=== PATIENT | female | born 1945 | race Caucasian/White ===

== ENCOUNTER 2018-10-19 15:58 | Observation (INO) ==
[2018-10-19] MEDS ORDERED: ZOFRAN IV PRN (16:16)
[2018-10-19] MEDS ORDERED: NITROGLYCERIN SL PRN (16:16)
[2018-10-19] MEDS ORDERED: SALINE LOCK IV FLUID XX ONE (16:16)
[2018-10-19] MEDS ORDERED: TYLENOL PO PRN (16:16)
--- NOTE | 2018-10-19 16:47 | Diag Imaging Result Doc PS360 ---
EXAM: CHEST-2 VIEWS 10/19/2018 HISTORY: Chest Pain TECHNIQUE: PA and lateral chest COMMENT: There is a hiatal hernia. The heart size and primary vascularity are within normal limits. The lungs are clear and unchanged since 06/18/2013. IMPRESSION: Hiatal hernia. Electronically signed by Bib Murray 10/19/2018 4:45 PM
--- NOTE | 2018-10-19 17:07 | EKG Report ---
Test Performed on : 10/19/2018 4:56:51 PM Test Reason : palpitations/cp Blood Pressure : / mmHG Vent. Rate : 079 BPM Atrial Rate : 079 BPM P-R Int : 158 ms QRS Dur : 090 ms QT Int : 392 ms P-R-T Axes : 026 -26 036 degrees QTc Int : 449 ms Sinus rhythm. with occasional premature ventricular complexes. Otherwise normal ECG No previous ECGs available Confirmed by Luis Fernando HUYNH, Marcelino Cazares ([id number]) on 10/21/2018 9:42:40 AM
[2018-10-19] MEDS ORDERED: ASPIRIN PO STA (17:08)
[2018-10-19 17:28] LABS: BASO# 0.02 X1000 (0.0-0.2); BASO% 0.2 % (0.0-0.8); EOS# 0.23 X1000 (0.0-0.7); EOS% 2.5 % (0.0-10.0); HEMATOCRIT 41.7 % (37.0-47.0); LYMPH# 3.66 X1000 (1.2-3.4); LYMPH% 39.7 % (20.5-51.1); MCH 31.7 PG (27-31); MCHC 33.6 g/dL (33-37); MCV 94.6 FL (81-99); MONO# 0.63 X1000 (0.11-0.59); MONO% 6.8 % (1.7-9.3); MPV 10.2 FL (7.4-10.4); NEUT# 4.67 X1000 (1.4-6.5); NEUT% 50.8 % (42.2-75.2); PLT 305 X1000 (130-400); RBC 4.41 XMIL (4.2-5.4); RDW 13.4 % (11.5-14.5); WBC 9.21 X1000 (4.8-10.8)
--- NOTE | 2018-10-19 17:36 | HISTORY AND PHYSICAL ---
CHIEF COMPLAINT: Heart skipping and chest pains. HISTORY OF PRESENT ILLNESS: The patient is a 72-year-old white female followed in my medical practice. She had come into the office initially on 10/15/2018 complaining of irregular heart rate. At that time, she was on some prednisone due to asthmatic bronchitis and she was on Levaquin, Bromfed DM, Zyrtec, and prednisone taper. She was on exam, having about every 5th beat that was skipping and noted on EKG to have PACs. We did labs to include BMP, magnesium, phosphorus, cardiac enzymes, troponin levels, and those studies were negative with the exception of phosphorus was mildly elevated at 4.6. Thyroid function test also were normal with free T4 1.21, TSH 4.01. The patient also had rendered a history of some chest pressure in addition to the fluttering sensation in her chest. Symptoms seemed to improve markedly until yesterday when she drank a large glass of tea at which time she seemed to note some palpitations came back, felt like her heart was racing and she noted symptoms worsen when lying down. Later on today around 12:30 p.m. she developed recurrent symptoms quite significant and had some chest pressure, pain, left axillary area that was fairly prominent 3 to 4/10, nonexertional. She notes her symptoms got worse when she laid back and felt the heart start racing significantly again. She desires admission to figure out what is going on. She was in the process of getting a Holter monitor set up through the outpatient route. MEDICATIONS: Prior to admission have been the Levaquin. She takes Zyrtec longstanding 10 mg daily, Fosamax 70 mg p.o. 1 time per week, Norvasc 5 mg p.o. daily, Zantac 300 mg p.o. daily, Prevacid 30 mg p.o. daily, multivitamin 1 p.o. daily. ALLERGIES: Codeine and Belladonna. PAST MEDICAL HISTORY: 1. Chronic hematuria with history of negative workup in the past. 2. Chronic constipation. 3. Diverticulosis. 4. Hypertension. 5. IBS. 6. History of remotely positive PPD. 7. Hiatal hernia. 8. Hypercholesterolemia diagnosed 2014, diet-controlled. 9. Dry macular degeneration, left greater than right. PAST SURGICAL HISTORY: 1. ADEOLA, RSO. 2. Laparoscopic cholecystectomy June 2001. IMMUNIZATIONS: Pneumovax 23, Tdap given August 2016, Prevnar 13 given December 2015. Zostavax given August 2016. FAMILY HISTORY: Notable for mother with hypertension. Father with OR at age 62. Grandmother with emphysema. She was a nonsmoker. TB and grandmother. No stroke in the family. Grandmother with diabetes mellitus. No cancer in the family. SOCIAL HISTORY: The patient lives in [place]. She is . She has 3 sons. 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 She has never been a smoker. She has had a lot of secondhand exposure, however. No alcohol use. REVIEW OF SYSTEMS: Negative except as above. PHYSICAL EXAMINATION: VITAL SIGNS: Weight 168, height 5 feet 6-1/2 inches tall, blood pressure 132/68, pulse 85, BMI 27. GENERAL: Well-developed, well-nourished white female. She says the pain has currently subsided in the left axillary area. PERRL. EOMI. Sclerae clear. Oropharynx, no redness. Tongue in the midline. NECK: No LA, TMG, JVD, bruits. CARDIOVASCULAR: RRR without MGR. No chest wall tenderness. No rash. LUNGS: CTA. ABDOMEN: Soft, NT, ND. No mass. No HSM. EXTREMITIES: No calf tenderness, cords or edema. NEUROLOGIC: Cranial nerves 2-12 are intact. No focal deficits. GENITOURINARY/RECTAL: Exam deferred. ASSESSMENT: 1. Atypical chest pain. 2. Palpitations with history of recent PACs after prednisone administration, now improved somewhat after 4 days off the prednisone. 3. Family history of coronary artery disease in her father. 4. Diet-controlled hypercholesterolemia. 5. Hypertension. 6. Diverticulosis. 7. Irritable bowel syndrome/chronic constipation. 8. Chronic hematuria with previously negative workup. 9. Remotely positive PPD. 10. Macular degeneration dry variety. 11. Hiatal hernia. PLAN: Will admit the patient. Obtain serial cardiac enzymes and troponin levels. Check CBC, CMP, chest x-ray, EKG, and we will ask Cardiology to see the patient as she may require additional cardiac studies. We will monitor her specifically on telemetry during the hospitalization as well. cc: Ronald Jc MD
[2018-10-19 17:46] LABS: ALB/GLOB RATIO 1.6; ALBUMIN 4.4 g/dL (3.5-5.0); CREATININE 1.1 mg/dL (0.5-0.9); TOTAL BILIRUBIN 0.62 mg/dL (0.20-1.00); TOTAL PROTEIN 7.1 g/dL (6.3-8.3)
--- NOTE | 2018-10-19 19:13 | CARDIOLOGY CONSULTATION ---
DATE: 10/19/2018 CONSULTATION REQUESTED BY: Ronald Jc MD INDICATION: Chest pain, palpitations. HISTORY: Ms. Jimenez is a pleasant 72-year-old female who presented to the attention of Dr. Jc about 10 days ago. The patient apparently had been to a graduation ceremony at [facility] and a few days later she started having respiratory congestion, cough, some wheezing. She went to see Dr. Jc on October 09. At that time, she was assessed and indeed she shows some wheezing and she got prescription for, I believe, prednisone and probably antibiotics. A few days later on October 14 after eating her lunch around noon time she suddenly experienced intense pressure in the middle of the chest that was followed and associated with palpitations. The rest of the day, she continued to have pressure in the chest. She was uncomfortable. Next day on October 15, went to see Dr. Jc who prescribed some medication, evaluated her and suggested perhaps doing a Holter monitor on her. Then yesterday, she felt again pressure in the chest and palpitations and today it really got worse and she was advised to come for admission to the hospital. The rest of the week she has felt palpitations and some persistent pressure like discomfort in the chest. Today she ate half a Musa sandwich and did not feel well. She went to lie down in bed and then she started having a lot of palpitations, pressure in the back of the neck, shoulder, and a dull more intense discomfort. At that time, she decided to come in to the hospital for further evaluation. They have done an EKG at 4:56 p.m. that shows sinus rhythm with PVCs. Her monitor shows frequent PVCs, bigeminy and trigeminy. PAST MEDICAL HISTORY: Positive for previous bout of palpitations and chest discomfort that led to an evaluation by Dr. Roseline Lee about 8 years ago. Back then nothing panned out. A CT of the heart showed no evidence of coronary calcification. She has been diagnosed with hiatal hernia. PAST SURGICAL HISTORY: Positive for cholecystectomy in 1998, hysterectomy in 1978. 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 She has also worked at the [employer] in the past. She currently lives with her . She has 3 grownup children. She has a dog and a cat. [place] She has no limitation to perform physical activities as far as she can tell. She has never been a smoker nor drinker. FAMILY HISTORY: Negative for heart disease. HOME MEDICATIONS: At this time, she is not taking any medication. She just finished her round of prednisone. REVIEW OF SYSTEMS: Really noncontributory other than the report of hiatal hernia and acid reflux. PHYSICAL EXAMINATION: Vital signs: Blood pressure is 137/76, pulse 101, temperature 97.4 degrees, respirations 71 General: She is awake, alert, oriented, in no distress. HEENT: Unremarkable. Chest: Clear to auscultation and percussion. Heart: Sounds are slightly irregular. She does have frequent extrasystoles. Abdomen: Nontender. Soft. Extremities: Show good pulses. No edema. Neurological: Nonfocal. Moves 4 extremities. LABORATORY DATA: Blood work is pending. EKG, as I said, done at 4:56 p.m. shows sinus rhythm with PVCs. IMPRESSION: 1. Patient presenting with atypical chest pain that temporally associates with a course of prednisone a few days prior to the onset of the discomfort. 2. History of hiatal hernia. Likely significant esophagitis/gastritis. 3. Abnormal EKG with premature ventricular contractions, ventricular arrhythmia. RECOMMENDATION: At this time, the patient probably has a noncardiac chest pain, however, given her age, it would be appropriate to pursue ischemia workup to make sure we are not missing anything potentially serious. We will arrange for a walking Lexiscan myocardial perfusion study. We will put her on low-dose Cardizem. We may consider also low-dose beta kandi. However, she has recently been treated for wheezing, suggesting that she may have reactive airway disease. We will put her on Carafate to minimize the abdominal or epigastric discomfort and further advice will be forthcoming. Thank you for the opportunity to participate in her evaluation. cc: MD Ronald De La Torre MD MTDD
[2018-10-19 21:16] LABS: URINE SOURCE CLEAN CATCH
[2018-10-19 21:23] LABS: BILIRUBIN URINE NEGATIVE (NEGATIVE); BLOOD URINE TRACE (NEGATIVE); COLOR STRAW; GLUCOSE URINE NEGATIVE (NEGATIVE); KETONE URINE NEGATIVE (NEGATIVE); LEUKOCYTES URINE LARGE (NEGATIVE); NITRITE URINE NEGATIVE (NEGATIVE); PROTEIN URINE NEGATIVE (NEGATIVE); SP GRAVITY URINE 1.003; TURBIDITY URINE CLEAR (CLEAR); UR EPITHELIAL CELLS <10 /HPF (<10); URINE BACTERIA NEGATIVE /HPF; URINE RBC <10 /HPF (<10); URINE WBC TNTC /HPF (<10); UROBILINOGEN URINE NORMAL (NORMAL)
[2018-10-19] MEDS: CARAFATE LIQUID PO SCH (22:12)
[2018-10-19] MEDS: CARDIZEM PO SCH (22:12)
[2018-10-20] MEDS: CARAFATE LIQUID PO SCH ×3 (02:33→14:20)
[2018-10-20] MEDS: CARDIZEM PO SCH ×2 (06:17→14:19)
[2018-10-20] MEDS ORDERED: PRILOSEC PO SCH (07:00)
--- NOTE | 2018-10-20 08:54 | PROGRESS NOTE ---
DATE: 10/20/2018 SUBJECTIVE: The patient says she feels better since taking the Cardizem last evening. She has had no chest pains. No palpitations. OBJECTIVE: Afebrile. Pulse 70, respirations 16, blood pressure 136/57. O2 saturation room air 95 to 96%.CV: RRR without murmur. No ectopy. Lungs: Clear. No wheezes. Abdomen: Nontender. Extremities: No calf tenderness, cords or edema. Neurologic: Nonfocal. Cranial nerves intact. LABORATORY: Labs from yesterday show white count 9.2, hemoglobin 14, and platelets 305,000. CMP showed BUN of 24, creatinine 1.9. Otherwise unremarkable. Cardiac enzymes show creatine kinase of 73 and 75 respectively, and troponin is less than 0.01 x 2. LDL was elevated at 190 fasting this morning. Triglycerides 266. Chest x-ray negative except for hiatal hernia. ASSESSMENT: 1. Atypical chest pain. 2. Palpitations with PACs per EKGs following prednisone administration. 3. Family history of coronary artery disease in her father. 4. Hypercholesterolemia, previously improved with diet, but now uncontrolled. 5. Hypertension. 6. Diverticulosis. 7. IBS/chronic constipation. 8. Chronic microscopic hematuria with previously negative workup. 9. Remotely positive PPD. 10. Dry macular degeneration. 11. Hiatal hernia. PLAN: Continue omeprazole. Continue Carafate started by Dr. Quinn. Stress testing is ordered for this morning. We will continue aspirin until that test result is back. She has been off the prednisone now for 5 days, and wheezes are not present after a course of a course of asthmatic bronchitis and treatment with antibiotic and steroids. Continue Carafate as per Dr. Quinn. cc: Ronald Jc MD
[2018-10-20] MEDS ORDERED: ASPIRIN PO SCH (09:00)
[2018-10-20] MEDS ORDERED: LEXISCAN ONE (11:12)
--- NOTE | 2018-10-20 11:27 | ECHO REPORT ---
ORDER DATE: 10/19/2018 INDICATIONS: Chest pain, palpitations, hypertension. FINDINGS: 1. PVCs were identified during the course of the study. 2. Normal right atrial size with a dimension of 3.2 cm. 3. Mild tricuspid regurgitation, RV systolic pressure of 38. 4. Normal RV size and systolic function. 5. Trace pulmonic insufficiency. 6. Normal left atrial size with a dimension of 3 cm and a volume index of 25. 7. No mitral prolapse. Trace mitral regurgitation. No evidence of mitral stenosis. 8. Normal LV size, end-diastolic dimension of 4.9. Normal wall thicknesses with a posterior and interventricular septal wall thickness of 0.8 cm each. Normal LV systolic function. Estimated EF of 65% with normal wall motion. 9. Aortic valve opens well. It is trileaflet. No evidence of stenosis or insufficiency. 10. The aorta appears normal in visualized segments. 11. No pericardial effusion is identified. cc: MD Ronald Austin MD
[2018-10-20] MEDS ORDERED: AMINOPHYLLINE ONE (11:39)
--- NOTE | 2018-10-20 15:15 | Diag Imaging Result Document ---
PROCEDURE NAME: MYOCARDIAL PERF SCAN, STR/REST - 10/20/2018 STUDY: Rest/stress walking Lexiscan myocardial perfusion study. INDICATION: Ventricular arrhythmia, chest discomfort, coronary heart disease being evaluated. DESCRIPTION: The patient came into the nuclear laboratory on 10/20 received resting injection of technetium 99 sestamibi 12.8 mCi. Multiple tomographic views of the cardiac structures were obtained at rest. Subsequently, the patient underwent walking Lexiscan protocol. Lexiscan 0.4 mg infused. At peak infusion, injected with technetium 99 sestamibi 36.3 mCi. Multiple tomographic views of the heart were obtained following the completion of the protocol. SUMMARY OF THE ELECTROCARDIOGRAPHIC PORTION OF THE STUDY: Resting ECG showed sinus rhythm, rate 82 beats per minute. Resting blood pressure is 135/79. Resting ECG shows sinus rhythm, leftward axis, and PVCs. During the protocol, the heart rate increased to a maximum of 125 beats per minute representing 85% of maximum predicted heart rate for her age. The blood pressure dropped to 110/60. The patient reported no chest pain, shortness of breath, or palpitations. There were frequent PVCs. Following the completion of the test, she complained of nausea and vomiting. She received aminophylline 125 mg to counteract the effects of the Lexiscan. During the recording phase, no significant abnormalities were noted. In summary, electrocardiographic response to walking Lexiscan protocol is deemed to be negative for ischemia. SUMMARY OF THE MYOCARDIAL PERFUSION PORTION OF THE STUDY: Poststress tomographic views of the left ventricle showed normal homogeneous distribution of radiotracer throughout the entire left ventricular myocardium. There is no evidence of any postexercise defect. The rest images show normal perfusion. Polar plots revealed the same. There is no evidence of any inducible ischemia nor myocardial scar. Gated SPECT shows normal left ventricular systolic function, ejection fraction estimated at rest at 75%, poststress 80%. No wall motion abnormality is noted. Lung/heart ratio is normal. TID is normal. SUMMARY: This study shows: 1. Normal electrocardiographic response to a walking Lexiscan protocol. The patient reported nausea during the infusion of Lexiscan that was counteracted with aminophylline. 2. Normal poststress myocardial perfusion scan. There is no scintigraphic evidence of pharmacologically-induced myocardial ischemia. 3. Normal left ventricular systolic function, ejection fraction calculated at 80% with normal ventricular volume. No wall motion abnormality. This study represents a low risk for ischemic events. cc: MD Donald Amato MD
[2018-10-20 15:53] VITALS: BP 126/65
== END 2018-10-20 19:02 | disposition home or self-care (01) ==
LOC: DIRADM → 4N 15:58
PROVIDERS: ADMIT Family Medicine; ATTEND Family Medicine
CPT/HCPCS: 71020; 71046; 78452; 80053; 80061; 81001; 82550; 83721; 83735; 84484; 85025; 87088; 93005; 93010; 93017; 93306; 94761; A9270; A9500; J0280; J0820; J2785

== ENCOUNTER 2019-06-30 06:18 | Day surgery (SDC) ==
--- NOTE | 2019-06-23 09:02 | EKG Report ---
Test Performed on : 06/23/2019 08:57:17 AM Test Reason : pat Blood Pressure : / mmHG Vent. Rate : 069 BPM Atrial Rate : 069 BPM P-R Int : 168 ms QRS Dur : 082 ms QT Int : 416 ms P-R-T Axes : 073 040 058 degrees QTc Int : 445 ms Normal sinus rhythm. Normal ECG When compared with ECG of 19-OCT-2018 16:56, premature ventricular complexes. are no longer present Confirmed by Sergio Greene MD ([id number]) on 06/23/2019 12:16:26 PM
[2019-06-23 09:16] LABS: BASO# 0.02 X1000 (0.0-0.2); BASO% 0.3 % (0.0-0.8); EOS# 0.23 X1000 (0.0-0.7); EOS% 3.7 % (0.0-10.0); HEMATOCRIT 42.5 % (37.0-47.0); HEMOGLOBIN 13.6 g/dL (12.0-16.0); LYMPH# 2.03 X1000 (1.2-3.4); LYMPH% 32.7 % (20.5-51.1); MCH 30.8 PG (27-31); MCV 96.4 FL (81-99); MONO% 4.8 % (1.7-9.3); MPV 10.4 FL (7.4-10.4); NEUT# 3.63 X1000 (1.4-6.5); NEUT% 58.5 % (42.2-75.2); PLT 240 X1000 (130-400); RBC 4.41 XMIL (4.2-5.4); RDW 12.3 % (11.5-14.5); WBC 6.21 X1000 (4.8-10.8)
[2019-06-23 09:50] LABS: AGAP 12; BUN 21 mg/dL (8-22); CALCIUM 9.6 mg/dL (8.8-10.2); CHLORIDE 102 mmol/L (98-107); COSMO 286; CREATININE 0.9 mg/dL (0.5-0.9); ESTIMATED GFR > 60; GLUCOSE 99 mg/dL (70-104); POTASSIUM 4.4 mmol/L (3.5-5.1); SODIUM 142 mmol/L (136-145); TCO2 28 mmol/L (25-35)
--- NOTE | 2019-06-29 20:32 | HISTORY AND PHYSICAL ---
HISTORY OF PRESENT ILLNESS: The patient is a 73-year-old female who was initially referred to me by Dr. Jeffrey Jc. The patient states she was pushing a truck out of the garage and noticed a leaking of urine and some increasing pressure. She struggles with long-standing constipation. She is not splinting, but she does notice bladder pain during the night. She does not have any urgency incontinence. She does have a history of endometriosis. She is not sexually active; however, she does have a Pop-Q stage III posterior compartment defect that is primarily distal, and she is wishing to proceed with surgical correction after failed improvement using dietary changes. The risks and benefits of surgery were explained at length. She understands and is wishing to proceed. PAST MEDICAL HISTORY: Positive for hypertension and hypercholesterolemia. PAST SURGICAL HISTORY: Positive for abdominal hysterectomy with a right salpingo-oophorectomy. She is noted to be a para 3, 0-1-3. ALLERGIES: Positive for codeine and prednisolone. CURRENT MEDICATIONS: Diltiazem 180, valsartan 160, pantoprazole 40, alendronate 70, cetirizine 10, sodium bicarb 650 and p.r.n. medications. FAMILY HISTORY: Noncontributory. SOCIAL HISTORY: Negative for tobacco, ETOH, or drugs. PHYSICAL EXAMINATION: GENERAL: BMI is 26. HEENT: Normocephalic, atraumatic. PERRLA, EOMI. NECK: No thyromegaly. CV: Regular rate and rhythm without murmur, gallop, or rub. PULMONARY: Clear to auscultation and percussion. ABDOMEN: Soft. : Shows a distal stage III defect; AA is -2, BA is -5, C is -8, TBL is 12, AP is +2, BP is -4, GH is 6, PB is 3. NEUROLOGIC: Afocal. EXTREMITIES: Without clubbing, cyanosis, or edema. ASSESSMENT AND PLAN: Patient with long-standing chronic constipation which is not responding to conservative management. She is admitted at this time for surgical correction of the apical and distal posterior compartment defect repair. She will undergo a sacrospinous suspension and posterior compartment defect repair. The risks and benefits have been discussed at length. cc: Chandu Rai MD
[2019-06-30] MEDS ORDERED: REGLAN ONE (06:49)
[2019-06-30] MEDS ORDERED: PEPCID ONE (06:49)
[2019-06-30] MEDS ORDERED: KEFZOL 1 GM/D5W 2 GM/100 ML IVPB ONE (06:49)
[2019-06-30] MEDS ORDERED: LR 1,000 ML ONE (06:50)
[2019-06-30] MEDS ORDERED: DIPRIVAN 1% ONE (07:46)
[2019-06-30] MEDS ORDERED: XYLOCAINE-MPF 2% ONE (07:47)
[2019-06-30] MEDS ORDERED: QUELICIN (DOSE) ONE (08:05)
[2019-06-30] MEDS ORDERED: SODIUM CHLORIDE 0.9% ONE (08:14)
[2019-06-30] MEDS ORDERED: D10W 500 ML ONE (08:14)
[2019-06-30] MEDS ORDERED: SENSORCAINE 0.5%-EPI 1:200,000 ONE ×2 (08:14→08:15)
--- NOTE | 2019-06-30 08:37 | H&P REVIEW ---
H&P Update H&P Review: H&P was reviewed and patient was examined, No change has occurred in the patient's condition
[2019-06-30] MEDS ORDERED: ZOFRAN ONE ×2 (08:48→10:10)
[2019-06-30] MEDS ORDERED: FENTANYL ONE (08:48)
[2019-06-30] MEDS ORDERED: DECADRON ONE (08:48)
[2019-06-30] MEDS ORDERED: LASIX ONE (09:22)
[2019-06-30] MEDS ORDERED: TORADOL ONE (09:26)
[2019-06-30] MEDS: DILAUDID ONE ×2 (10:25→10:35)
[2019-06-30] MEDS: PHENERGAN ONE ×2 (10:30→10:40)
[2019-06-30] MEDS ORDERED: ZOFRAN ODT PO PRN (10:50)
[2019-06-30] MEDS ORDERED: ULTRACET 37.5MG/325MG PO PRN (10:50)
[2019-06-30] MEDS: ZYRTEC PO SCH (13:04)
[2019-06-30] MEDS: COLACE PO SCH ×2 (13:04→21:52)
[2019-06-30] MEDS: PERIDEX MT SCH ×2 (13:04→21:55)
[2019-06-30] MEDS: PROTONIX PO SCH ×2 (13:04→21:52)
[2019-06-30] MEDS: CATAPRES PO SCH ×2 (13:05→22:02)
[2019-06-30] MEDS: LR 1,000 ML IV SCH ×2 (13:05→17:57)
[2019-06-30] MEDS ORDERED: METROGEL-VAGINAL 0.75% GEL ONE (13:49)
[2019-06-30] MEDS: TORADOL IV SCH ×2 (14:53→21:52)
--- NOTE | 2019-06-30 15:30 | OPERATIVE NOTE ---
PROCEDURE DATE: 06/30/2019 PREOPERATIVE DIAGNOSIS: Vaginal wall prolapse. POSTOPERATIVE DIAGNOSIS: Vaginal wall prolapse, enterocele. PROCEDURE: Enterocele repair, sacrospinous suspension. SURGEON: Chandu Rai MD. ANESTHESIA: General. ESTIMATED BLOOD LOSS: 30 mL. HISTORY: The patient is a 73-year-old female who has having worsening problems with pelvic organ prolapse. She has had a prior reconstruction by another physician at the time of hysterectomy and was really struggling, wished to proceed with surgical intervention. OPERATIVE FINDINGS: Point C was at -6 with a TDL of 11. She has a large distal posterior compartment defect as well. The anus was noted to be extremely tight for digital evaluation. No other abnormalities were noted. DESCRIPTION OF PROCEDURE: Patient taken to operating room placed in the supine position. After adequate general anesthesia was obtained, she was placed in candy cane stirrups. The vagina and perineum was prepped and draped in the usual fashion. A large defect was identified in the midline. Allis clamps were utilized to grasp this area x2. Approximately 40 mL of 0.5% Marcaine with epinephrine diluted 50% with normal saline. INCOMPLETE REPORT--DICTATION STOPS HERE cc: Chandu Rai MD
--- NOTE | 2019-06-30 17:39 | OPERATIVE NOTE ---
PROCEDURE DATE: 06/30/2019 PRINCIPAL DIAGNOSIS: Vaginal vault prolapse. POSTOPERATIVE DIAGNOSIS: 1. Enterocele. 2. Vaginal vault prolapse. PROCEDURE: 1. Enterocele repair. 2. Sacrospinous suspension. SURGEON: Chandu Rai MD ANESTHESIA: General. ESTIMATED BLOOD LOSS: 30 mL. HISTORY: The patient is a 73-year-old female, who had some type of prior reconstructive surgery in the posterior compartment as well as hysterectomy by another physician. Patient was having advanced stage prolapse with more difficulty with defecation. We attempted to manage her conservatively and ended up now proceeding with surgical intervention. OPERATIVE FINDINGS: POP-Q stage III prolapse point C was -6 with a TVL of 11. OPERATIVE PROCEDURE: Patient taken to operating room placed in supine position after adequate general anesthesia was obtained. She was prepped and draped in the usual fashion for vaginal surgery and had been placed in the [facility] can stirrups. The posterior defect was large in easily identified and grasped with Allis clamps x2. Then 40 mL of 0.5% Marcaine with epinephrine diluted 50% with normal saline was then injected for hydrodissection of the posterior compartment. A sagittal incision was made. We easily dissected up to the sacrospinous ligament. However, in doing this we also discovered a large enterocele that was present. We purposely did not open the enterocele sac and actually were able to use 4 x 4s to help with packing and we packed the defect above the sacrospinous ligament and then used 2 layers of pursestring suture with 2.0 Tycron to close this area off. No all we had was a large posterior defect and apical support issues, so we turned our attention towards performing sacrospinous suspension. We used an Anchorsure device and placed a Prolene suture through the left uterosacral ligament approximately 2 cm medial of the ischial spine. We tagged this for later identification. We did the same thing on the right-hand side as well. We then took our tags and using a free Crane needle, we then incorporated 1 arm of the Prolene suture into the vaginal apex. At this point, we continued our dissection down to the perineal body. We were able to easily do this. We trimmed approximately 3 cm of vaginal mucosa off from each side. We then started our vaginal closing suture with 2.0 Tycron, placing approximately 3 throws through this area initially and then we stopped and turned our attention towards supporting the apex. Using the Prolene suture, we removed the hemostat that was used to tag it and we tied both of the Prolene sutures down in such a way that it retracted the apex of the vagina up higher into the pelvis in a more anatomic position. In doing this, it then pulled the vaginal mucosa of the posterior wall back were supposed to be. We then continued with our 2.0 Vicryl ligature closure of this area. We had already done the posterior compartment defect repair using 0 Vicryl ligature, plicating across the midline using the distal levators in this area and we attached this distal portion to the perineal body transverse perineal region as well. Completion of this noted excellent support with some banding approximately 7 cm as the sacrospinous ligament pulled to a more posterior region and our plication had left more of a shelf in that area. After doing this, several rectal examinations have been performed, both during the placement of the sacrospinous ligament suture as well as during the closure. There was no involvement with the sigmoid or anal region. However, the anus was noted to be very stenotic. It is barely accepting 1 finger, being very tight, and this might be some of the issue that she is having with her chronic constipation and this was discussed with the family in the postoperative period. Vaginal pack was placed. Bermudez catheter was placed. Output was clear from the Bermudez. We also performed cystoscopy prior to placing the vaginal pack and both ureters were effluxing urine. There were no mucosal abnormalities. After the packing was placed, the patient was taken out of the dorsal lithotomy position and placed on the stretcher. I had gone to speak with the family regarding our surgical adventure. However, after completion of talking to the family, I got a call from the OR that she was having some brisk bleeding vaginally, so I returned to the OR and it appeared I had not packed tight enough because she was having some oozing of blood. We placed the patient back on the table and removed the packing and used a right angle suture. We had given the patient Toradol at the end of the procedure. The suture line was intact and it appeared to be just oozing involving the whole posterior vaginal wall of just oozing around the suture line. So, decision was made to repack it in a tighter fashion in this area and I initially had not packed it very tight because of concerns of tissue tearing in her age. We placed a full pack in this time instead of a half pack as we had done in the initial attempt, and this was easily done with no further bleeding. The patient was retransferred back to the stretcher. She was awakened, taken recovery room with vital signs stable. cc: Chandu Rai MD
[2019-06-30] MEDS ORDERED: DIOVAN PO SCH (21:00)
[2019-06-30] MEDS ORDERED: CARDIZEM CD PO SCH (21:00)
[2019-06-30] MEDS ORDERED: MIRALAX PO SCH (21:00)
[2019-07-01] MEDS: TORADOL IV SCH ×2 (04:08→08:08)
[2019-07-01 04:34] VITALS: BP 151/62
[2019-07-01] MEDS: PROTONIX PO SCH (08:08)
[2019-07-01] MEDS: COLACE PO SCH (08:09)
[2019-07-01] MEDS: ZYRTEC PO SCH (08:09)
[2019-07-01] MEDS: PERIDEX MT SCH (08:09)
[2019-07-01] MEDS: CATAPRES PO SCH (08:09)
[2019-07-04] MEDS ORDERED: FOSAMAX PO SCH (09:00)
== END 2019-07-01 08:15 | disposition home or self-care (01) ==
LOC: OPS 06:18 → PAT 06:18 → 4N 06:18 → OPS 07-01 08:15
PROVIDERS: ATTEND Obstetrics & Gynecology